=== PATIENT | female | born 1990 | race Caucasian/White ===

== ENCOUNTER 2021-02-07 14:22 | Emergency (ER) | payer SELFPAY ==
[2021-02-07] MEDS ORDERED: BUPIVACAINE 0.5% PF 10 ML VIAL ONE (15:35)
--- NOTE | 2021-02-07 16:30 | EDPHYS ---
Physician Documentation [facility] Name: Ela Mckee Age: 31 yrs Sex: Female : 1990 Arrival Date: 02/07/2021 Time: 14:35 Bed 12 Private MD: ED Physician Porfirio Xiong HPI: 02/07 16:01 This 31 yrs old Female presents to ER via Ambulatory with complaints of Finger Injury - jr8 nail. 16:01 This is a 31-year-old female that injured her left fifth digit by smashing it in a cart jr8 about 4 days ago. Avulsed the base of the nailbed causing him to stick out. Initially had not come in for evaluation and thought it was just seat in its place. Now having mild drainage and continued pain.. 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 - Social history:: Smoking status: Patient denies any tobacco usage or history of. ROS: 16:01 Constitutional: Negative for fever, chills, and weight loss, Skin: Negative for injury, jr8 rash, and discoloration. 16:01 MS/extremity: Positive for erythema, pain, tenderness, of the dorsal aspect of distal phalanx of left little finger. 16:01 All other systems are negative. Exam: 16:01 Constitutional: This is a well developed, well nourished patient who is awake, alert, jr8 and in no acute distress. Cardiovascular: Regular rate and rhythm with a normal S1 and S2. No gallops, murmurs, or rubs. Normal PMI, no JVD. No pulse deficits. Respiratory: Lungs have equal breath sounds bilaterally, clear to auscultation and percussion. No rales, rhonchi or wheezes noted. No increased work of breathing, no retractions or nasal flaring. Skin: Warm, dry with normal turgor. Normal color with no rashes, no lesions, and no evidence of cellulitis. Neuro: Awake and alert, GCS 15, oriented to person, place, time, and situation. Motor strength 5/5 in all extremities. Sensory grossly intact. 16:01 Musculoskeletal/extremity: Extremities: grossly normal except: noted in the dorsal aspect of distal phalanx of left little finger: Avulsion of the medial aspect of the nailbed noted to the left fifth digit. Mild serous discharge noted. No substantial amount of erythema or cellulitis noted. Full range of motion intact with normal sensation. Mild tenderness to palpation noted., ROM: intact in all extremities, Circulation is intact in all extremities. Sensation intact. Vital Signs: 15:15 BP 126 / 90; Pulse 86; Resp 16; Temp 97.3; Pulse Ox 98% ; Weight 92.53 kg; Height 5 ft. vg1 4 in. (162.56 cm); Pain 6/10; 15:15 Body Mass Index 35.02 (92.53 kg, 162.56 cm) vg1 Procedures: 16:01 Nerve block: (digital) of dorsal aspect of proximal phalanx of left little finger jr8 Medication: Marcaine 0.5%, Amount: 4 mls were injected, Effect: the patient has resolution of the pain, Set up for procedure. Performed by Carlos BEE Patient tolerated well. MDM: 15:32 Patient medically screened. jr8 16:01 Data reviewed: vital signs, nurses notes. Data interpreted: Pulse oximetry: on room air jr8 is 98 %. Interpretation: normal. Counseling: I had a detailed discussion with the patient and/or guardian regarding: the historical points, exam findings, and any diagnostic results supporting the discharge/admit diagnosis, the need for outpatient follow up, a family practitioner, to return to the emergency department if symptoms worsen or persist or if there are any questions or concerns that arise at home. 16:27 ED course: Nail was unable to be retained so I completely removed it. Under bed of the jr8 nail is intact. No signs of exudative discharge noted.. Administered Medications: 16:05 Drug: Marcaine (bupivacaine) (0.5 %) 1 vials {Note: administered by provider .} Volume: as6 10 ml; Route: Infiltration; 16:46 Follow up: Response: No adverse reaction as6 Disposition: 02/08 09:10 Co-signature as Attending Physician, Porfirio Xiong MD I agree with the assessment and lindsay plan of care. Disposition Summary: 02/07/21 16:29 Discharge Ordered Location: Home jr8 Problem: new jr8 Symptoms: have improved jr8 Condition: Stable jr8 Diagnosis - Avulsion of nail left fifth digit jr8 Followup: jr8 - With: Private Physician - When: 5 - 6 days - Reason: Wound Recheck, Recheck today's complaints, Continuance of care, Re-evaluation by your physician Discharge Instructions: - Discharge Summary Sheet jr8 - Nail Avulsion jr8 - Nail Bed Injury jr8 Forms: - Medication Reconciliation Form jr8 - Thank You Letter jr8 - Antibiotic Education jr8 - Prescription Opioid Use jr8 Prescriptions: - Cephalexin 500 mg Oral Capsule - take 1 capsule by ORAL route every 8 hours for 5 days; 15 capsule; Refills: 0, jr8 Product Selection Permitted Signatures: Porfirio Xiong MD MD cha Roszak, Josh, PA PA jr8 Edna Appiah RN RN vg1 Berry Pink RN RN as6 Corrections: (The following items were deleted from the chart) 02/07 15:17 15:17 PSHx: None; vg1 vg1
--- NOTE | 2021-02-07 16:30 | ER ---
Nurse's Notes [facility] Name: Ela Mckee Age: 31 yrs Sex: Female : 1990 Arrival Date: 02/07/2021 Time: 14:35 Bed 12 Private MD: Diagnosis: Avulsion of nail left fifth digit Presentation: 02/07 15:15 Chief complaint: Patient states: Left pinky injury with a shopping cart x4 days ago. Pt vg1 states now its swollen, red and draining. Coronavirus screen: Vaccine status: Patient reports receiving the 2nd dose of the covid vaccine. Client denies travel out of the [place] in the last 14 days. Ebola Screen: Patient negative for fever greater than or equal to 101.5 degrees Fahrenheit, and additional compatible Ebola Virus Disease symptoms. Initial Sepsis Screen: Does the patient meet any 2 criteria? No. Patient's initial sepsis screen is negative. Does the patient have a suspected source of infection? No. Patient's initial sepsis screen is negative. Risk Assessment: Do you want to hurt yourself or someone else? Patient reports no desire to harm self or others. Onset of symptoms was February 03, 2021. 15:15 Method Of Arrival: Ambulatory vg1 15:15 Acuity: KIKI 4 vg1 Triage Assessment: 15:17 General: Appears in no apparent distress. comfortable, Behavior is calm, cooperative. vg1 Pain: Complains of pain in left little fingernail Pain currently is 6 out of 10 on a pain scale. Musculoskeletal: Swelling present in dorsal aspect of distal phalanx of left little finger Reports numbness in left little fingernail. Injury Description: Crush injury sustained to left little fingernail. 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 - Social history:: Smoking status: Patient denies any tobacco usage or history of. Screenin:10 Abuse screen: Denies threats or abuse. Nutritional screening: No deficits noted. as6 Tuberculosis screening: No symptoms or risk factors identified. Fall Risk None identified. Assessment: 16:09 Reassessment: Patient and/or family updated on plan of care and expected duration. Pain as6 level reassessed. Patient is alert, oriented x 3, equal unlabored respirations, skin warm/dry/pink. Vital Signs: 15:15 BP 126 / 90; Pulse 86; Resp 16; Temp 97.3; Pulse Ox 98% ; Weight 92.53 kg; Height 5 ft. vg1 4 in. (162.56 cm); Pain 6/10; 15:15 Body Mass Index 35.02 (92.53 kg, 162.56 cm) vg1 ED Course: 14:35 Patient arrived in ED. am2 15:17 Triage completed. vg1 15:17 Arm band placed on. vg1 15:32 Carlos Gaston PA is PHCP. jr8 15:32 Porfirio Xiong MD is Attending Physician. jr8 15:33 Lakeisha Ruiz RN is Primary Nurse. ll1 16:10 Bed in low position. Call light in reach. Side rails up X 1. as6 16:46 Assist provider with nail repair of avulsion of left little finger Set up for as6 procedure. Performed by Carlos BEE Dressed with band aid, Neosporin Patient tolerated well. Patient did not have IV access during this emergency room visit. Administered Medications: 16:05 Drug: Marcaine (bupivacaine) (0.5 %) 1 vials {Note: administered by provider .} Volume: as6 10 ml; Route: Infiltration; 16:46 Follow up: Response: No adverse reaction as6 Outcome: 16:29 Discharge ordered by . jr8 16:47 Discharged to home ambulatory, with significant other. as6 16:47 Condition: stable 16:47 Discharge instructions given to patient, Instructed on discharge instructions, follow up and referral plans. medication usage, Demonstrated understanding of instructions, follow-up care, medications, Prescriptions given X 1. 16:48 Patient left the ED. as6 Signatures: Carlos Gaston PA PA jr8 Ellen Rene am2 Edna Appiah RN RN vg1 Lakeisha Ruiz RN RN ll1 Berry Pink RN RN as6 Corrections: (The following items were deleted from the chart) 15:17 15:17 PSHx: None; vg1 vg1
[2021-02-07 16:58] VITALS: BP 126/90; TEMP 97.3; O2SAT 98
== END 2021-02-07 16:48 | disposition home or self-care (01) ==
LOC: ER 14:22
PROC: 0HDQXZZ Extraction of Finger Nail, External Approach (ICD-10-PCS; principal; 2021-02-07)
DX: S61.307A Unspecified open wound of left little finger with damage to nail, initial encounter (principal); W23.0XXA Caught, crushed, jammed, or pinched between moving objects, initial encounter
CPT/HCPCS: 64450; 99283